=== PATIENT | female | born 1970 | race Two or more races ===

== ENCOUNTER 2017-11-02 05:03 | Emergency (ER) | payer OTHER ==
[~2017-11-02] VITALS: Ht 160 cm; Wt 45.4 kg
[~2017-11-02 05:03] MED LIST: CLONAZEPAM2 MG; DICY20TA; ORASEP SPRAY30 ML MM; PEPCID40 MG PO; PROTONIX20 MG; SINGULAIR10 MG; TOPROL XL25 M1; ZOFRAN8 MG PO
[2017-11-02] MEDS ORDERED: AMBIEN10 MG (05:52)
[2017-11-02] MEDS ORDERED: PROTONIX40 MG PO (10:41)
[2017-11-02] MEDS ORDERED: AMBIEN10 MG PO (10:41)
[2017-11-02] MEDS ORDERED: DICLOFENAC SODI50 MG PO (10:41)
== END 2017-11-02 11:22 | disposition home or self-care (01) ==
LOC: ER 05:03
DX: R10.13 Epigastric pain (principal)

== ENCOUNTER 2017-11-26 07:27 | Emergency (ER) | payer OTHER ==
[~2017-11-26] VITALS: Ht 160 cm; Wt 44.9 kg
[~2017-11-26 07:27] MED LIST changes: +AMBIEN10 MG; +AMBIEN10 MG PO; +DICLOFENAC SODI50 MG PO; +PROTONIX40 MG PO
== END 2017-11-26 10:52 | disposition home or self-care (01) ==
LOC: ER 07:27
DX: M79.1 Myalgia (principal)

== ENCOUNTER 2018-01-19 09:09 | Outpatient (CLI) | payer OTHER | END 2018-01-19 09:18 | disposition home or self-care (01) | LOC: RAD 501 09:09 | DX: M25.512 Pain in left shoulder (principal) ==

== ENCOUNTER 2018-06-12 14:47 | Emergency (ER) | payer OTHER ==
[~2018-06-12] VITALS: Ht 160 cm; Wt 36.3 kg
[2018-06-12] MEDS ORDERED: CLONAZEPAM1 MG (15:11)
== END 2018-06-12 22:17 | disposition home or self-care (01) ==
LOC: ER 14:47
DX: K29.70 Gastritis, unspecified, without bleeding (principal)

== ENCOUNTER 2018-08-01 06:59 | Emergency (ER) | payer OTHER ==
[~2018-08-01] VITALS: Ht 160 cm; Wt 39.0 kg
[~2018-08-01 06:59] MED LIST changes: +CLONAZEPAM1 MG
[2018-08-01] MEDS ORDERED: XOPENEX0.63 MG/3 IH (07:23)
[2018-08-01] MEDS ORDERED: SYMBICORT 16010.2 GM (07:24)
[2018-08-01] MEDS ORDERED: TUSSI PRES-B L120 M1 PO (11:01)
[2018-08-01] MEDS ORDERED: AMBIEN10 MG PO (11:01)
== END 2018-08-01 11:30 | disposition home or self-care (01) ==
LOC: ER 06:59
DX: B34.9 Viral infection, unspecified (principal)

== ENCOUNTER → 2018-10-12 | Outpatient (CLI) | payer OTHER ==
[~2018-10-12] MED LIST changes: +SYMBICORT 16010.2 GM; +TUSSI PRES-B L120 M1 PO; +XOPENEX0.63 MG/3 IH
== END | disposition home or self-care (01) ==
LOC: NUCLEAR 07:00
DX: C50.911 Malignant neoplasm of unspecified site of right female breast (principal); C79.89 Secondary malignant neoplasm of other specified sites
CPT/HCPCS: 78815; A9552

== ENCOUNTER 2018-10-30 08:20 | Emergency (ER) | payer OTHER ==
[~2018-10-30] VITALS: Ht 152.4 cm; Wt 39.9 kg
== END 2018-10-30 09:34 | disposition home or self-care (01) ==
LOC: ER 08:20
DX: S50.12XA Contusion of left forearm, initial encounter (principal); W22.8XXA Striking against or struck by other objects, initial encounter; Y93.89 Activity, other specified; Y92.89 Other specified places as the place of occurrence of the external cause; Y99.8 Other external cause status

== ENCOUNTER 2018-11-30 09:09 | Emergency (ER) | payer OTHER ==
[~2018-11-30] VITALS: Ht 152.4 cm; Wt 38.6 kg
== END 2018-11-30 13:10 | disposition home or self-care (01) ==
LOC: ER 09:09
DX: S90.01XA Contusion of right ankle, initial encounter (principal); W18.39XA Other fall on same level, initial encounter; Y93.89 Activity, other specified; Y92.091 Bathroom in other non-institutional residence as the place of occurrence of the external cause; Y99.8 Other external cause status

== ENCOUNTER 2019-02-16 10:41 | Emergency (ER) | payer OTHER ==
[~2019-02-16] VITALS: Ht 152.4 cm; Wt 40.8 kg
[2019-02-16] MEDS ORDERED: CLONAZEPAM1 MG (11:14)
[2019-02-16] MEDS ORDERED: KETO10TA2 PO (14:32)
[2019-02-16] MEDS ORDERED: AMBIEN10 MG PO (14:32)
[2019-02-16] MEDS ORDERED: CLONAZEPAM1 MG PO (14:32)
[2019-02-16] MEDS ORDERED: NORFLEX100MG PO (14:32)
== END 2019-02-16 14:40 | disposition home or self-care (01) ==
LOC: ER 10:41
DX: M79.622 Pain in left upper arm (principal)

== ENCOUNTER 2019-04-27 06:41 | Emergency (ER) | payer OTHER ==
[~2019-04-27] VITALS: Ht 152.4 cm; Wt 38.6 kg
[~2019-04-27 06:41] MED LIST changes: +CLONAZEPAM1 MG PO; +KETO10TA2 PO; +NORFLEX100MG PO
== END 2019-04-27 12:05 | disposition home or self-care (01) ==
LOC: ER 06:41
DX: K29.60 Other gastritis without bleeding (principal); R06.02 Shortness of breath

== ENCOUNTER 2019-06-10 07:51 | Emergency (ER) | payer OTHER ==
[~2019-06-10] VITALS: Ht 152.4 cm; Wt 39.9 kg
== END 2019-06-10 11:54 | disposition home or self-care (01) ==
LOC: ER 07:51
DX: B34.9 Viral infection, unspecified (principal)

== ENCOUNTER 2019-06-22 06:49 | Emergency (ER) | payer OTHER ==
[~2019-06-22] VITALS: Ht 152.4 cm; Wt 36.3 kg
== END 2019-06-22 14:21 | disposition home or self-care (01) ==
LOC: ER 06:49 → CPU-OBS 07:07 → ER 14:21
DX: R07.89 Other chest pain (principal); R00.2 Palpitations
CPT/HCPCS: G0378; G0379; 93005

== ENCOUNTER 2019-08-14 05:49 | Emergency (ER) | payer OTHER ==
[~2019-08-14] VITALS: Ht 160 cm; Wt 45.4 kg
== END 2019-08-14 12:35 | disposition home or self-care (01) ==
LOC: ER 05:49
DX: M54.5 Low back pain (principal)

== ENCOUNTER 2019-08-22 05:31 | Emergency (ER) | payer OTHER ==
[~2019-08-22] VITALS: Ht 152.4 cm; Wt 39.9 kg
[2019-08-22] MEDS ORDERED: AMBIEN10 MG PO (06:30)
== END 2019-08-22 06:39 | disposition home or self-care (01) ==
LOC: ER 05:31
DX: R06.02 Shortness of breath (principal); R00.0 Tachycardia, unspecified; F06.4 Anxiety disorder due to known physiological condition

== ENCOUNTER 2020-04-17 09:26 | Emergency (ER) | payer OTHER ==
[~2020-04-17] VITALS: Ht 152.4 cm; Wt 40.8 kg
[2020-04-17] MEDS ORDERED: NORFLEX100MG PO (10:53)
[2020-04-17] MEDS ORDERED: AMBIEN10 MG PO (10:53)
== END 2020-04-17 10:58 | disposition home or self-care (01) ==
LOC: ER 09:26
DX: M54.2 Cervicalgia (principal); M79.602 Pain in left arm

== ENCOUNTER 2020-04-27 05:29 | Emergency (ER) | payer OTHER ==
[~2020-04-27] VITALS: Ht 152.4 cm; Wt 36.3 kg
[2020-04-27] MEDS ORDERED: XOPENEX0.63 MG/3 (05:48)
[2020-04-27] MEDS ORDERED: CLONAZEPAM0.125 MG (05:48)
== END 2020-04-27 14:00 | disposition home or self-care (01) ==
LOC: ER 05:29
DX: J45.31 Mild persistent asthma with (acute) exacerbation (principal); R06.02 Shortness of breath; C50.812 Malignant neoplasm of overlapping sites of left female breast; C50.811 Malignant neoplasm of overlapping sites of right female breast; C79.9 Secondary malignant neoplasm of unspecified site; Z17.0 Estrogen receptor positive status [ER+]; Z03.818 Encounter for observation for suspected exposure to other biological agents ruled out

== ENCOUNTER 2020-06-04 06:31 | Emergency (ER) | payer OTHER ==
[~2020-06-04] VITALS: Ht 152.4 cm; Wt 39.9 kg
[~2020-06-04 06:31] MED LIST changes: +CLONAZEPAM0.125 MG; +XOPENEX0.63 MG/3
[2020-06-04] MEDS ORDERED: KETO10TA2 PO (09:47)
[2020-06-04] MEDS ORDERED: ORPHENADRINE C100 MG PO (09:47)
== END 2020-06-04 09:55 | disposition home or self-care (01) ==
LOC: ER 06:31
DX: S43.492A Other sprain of left shoulder joint, initial encounter (principal); X50.0XXA Overexertion from strenuous movement or load, initial encounter; Y93.F2 Activity, caregiving, lifting; Y92.89 Other specified places as the place of occurrence of the external cause; Y99.8 Other external cause status

== ENCOUNTER → 2020-07-26 | Emergency (ER) | payer OTHER ==
[~2020-07-26] VITALS: Ht 152.4 cm; Wt 39.9 kg
[~2020-07-26] MED LIST changes: +ANASTROZOLE1 MG PO; +ORPHENADRINE C100 MG PO
== END | disposition left against medical advice (07) ==
LOC: ER 12:20
DX: Z53.20 Procedure and treatment not carried out because of patient's decision for unspecified reasons (principal)

== ENCOUNTER 2021-03-07 09:20 | Emergency (ER) | payer OTHER ==
[~2021-03-07] VITALS: Ht 152.4 cm; Wt 45.4 kg
[2021-03-07] MEDS ORDERED: METOPROLOL SUCC25 MG PO (10:12)
[2021-03-07] MEDS ORDERED: ZOLPIDEM TARTRA10 MG PO (10:13)
[2021-03-07] MEDS ORDERED: CLONAZEPAM1 MG PO (10:13)
[2021-03-07] MEDS ORDERED: KETO10TA2 PO (13:13)
[2021-03-07] MEDS ORDERED: NORFLEX100MG PO (13:13)
== END 2021-03-07 14:11 | disposition home or self-care (01) ==
LOC: ER 09:20
DX: S80.01XA Contusion of right knee, initial encounter (principal); S80.11XA Contusion of right lower leg, initial encounter; W18.39XA Other fall on same level, initial encounter; Y93.89 Activity, other specified; Y92.098 Other place in other non-institutional residence as the place of occurrence of the external cause; Y99.8 Other external cause status

== ENCOUNTER 2022-06-13 06:17 | Emergency (ER) | payer OTHER ==
[~2022-06-13] VITALS: Ht 152.4 cm; Wt 45.4 kg
[~2022-06-13 06:17] MED LIST changes: +METOPROLOL SUCC25 MG PO; +ZOLPIDEM TARTRA10 MG PO
== END 2022-06-13 10:48 ==
LOC: ER 06:17
DX: M25.512 Pain in left shoulder (principal); M25.522 Pain in left elbow; X50.0XXA Overexertion from strenuous movement or load, initial encounter; Y93.9 Activity, unspecified; Y92.013 Bedroom of single-family (private) house as the place of occurrence of the external cause; Z88.0 Allergy status to penicillin; Z88.2 Allergy status to sulfonamides; Z91.013 Allergy to seafood; M75.52 Bursitis of left shoulder

== ENCOUNTER 2022-08-11 08:49 | Emergency (ER) | payer OTHER ==
[~2022-08-11] VITALS: Ht 152.4 cm; Wt 45.4 kg
== END 2022-08-11 11:12 | disposition home or self-care (01) ==
LOC: ER 08:49
DX: S43.402A Unspecified sprain of left shoulder joint, initial encounter (principal); Y93.E5 Activity, floor mopping and cleaning; Y93.89 Activity, other specified; Y92.89 Other specified places as the place of occurrence of the external cause; Y99.9 Unspecified external cause status; Z88.8 Allergy status to other drugs, medicaments and biological substances; Z88.0 Allergy status to penicillin; Z91.013 Allergy to seafood

== ENCOUNTER 2023-11-04 05:06 | Emergency (ER) | payer OTHER ==
[~2023-11-04] VITALS: Ht 152.4 cm; Wt 61.2 kg
[2023-11-04] MEDS ORDERED: ORPHENADRINE CITRATE 30 MG/ML AMPUL IM STA (05:27)
[2023-11-04] MEDS ORDERED: KETOROLAC TROMETHAMINE 60 MG VIAL IM STA (05:28)
[2023-11-04] MEDS ORDERED: TRIAMCINOLONE ACETONIDE 40 MG/ML VIAL IM STA (05:28)
== END 2023-11-04 06:39 ==
LOC: ER → EMR PED 05:10 → ER 06:39
DX: S05.12XA Contusion of eyeball and orbital tissues, left eye, initial encounter (principal); X58.XXXA Exposure to other specified factors, initial encounter; Y93.89 Activity, other specified; Y92.89 Other specified places as the place of occurrence of the external cause; Y99.9 Unspecified external cause status; R07.89 Other chest pain; Z88.8 Allergy status to other drugs, medicaments and biological substances; Z88.0 Allergy status to penicillin; Z91.013 Allergy to seafood

== ENCOUNTER 2023-11-12 04:37 | Emergency (ER) | payer OTHER ==
[~2023-11-12] VITALS: Ht 152.4 cm; Wt 61.2 kg
[2023-11-12] MEDS ORDERED: KAPSPARGO SPRIN25 MG PO (05:18)
[2023-11-12] MEDS ORDERED: KETOROLAC TROMETHAMINE 60 MG VIAL IM STA (06:39)
[2023-11-12] MEDS ORDERED: DEXAMETHASONE SODIUM PHOSPHATE 4 MG/ML VIAL IM STA (06:39)
[2023-11-12] MEDS ORDERED: ORPHENADRINE CITRATE 30 MG/ML AMPUL IM STA (06:42)
== END 2023-11-12 07:03 | disposition home or self-care (01) ==
LOC: ER 04:38
DX: M94.0 Chondrocostal junction syndrome [Tietze] (principal); Z88.0 Allergy status to penicillin; Z88.8 Allergy status to other drugs, medicaments and biological substances

== ENCOUNTER 2023-11-23 03:33 | Emergency (ER) | payer OTHER ==
[~2023-11-23] VITALS: Ht 152.4 cm; Wt 61.2 kg
[~2023-11-23 03:33] MED LIST changes: +KAPSPARGO SPRIN25 MG PO
[2023-11-23] MEDS ORDERED: DEXAMETHASONE SODIUM PHOSPHATE 4 MG/ML VIAL IM STA (04:47)
[2023-11-23] MEDS ORDERED: KETOROLAC TROMETHAMINE 60 MG VIAL IM STA (04:47)
[2023-11-23] MEDS ORDERED: ORPHENADRINE CITRATE 30 MG/ML AMPUL IM STA (04:47)
== END 2023-11-23 05:09 | disposition home or self-care (01) ==
LOC: ER 03:33
DX: M94.0 Chondrocostal junction syndrome [Tietze] (principal); I10 Essential (primary) hypertension

== ENCOUNTER 2024-03-07 17:51 | Emergency (ER) | payer OTHER ==
[~2024-03-07] VITALS: Ht 152.4 cm; Wt 61.2 kg
[2024-03-07] MEDS ORDERED: ANASTROZOLE1 MG (18:19)
[2024-03-07] MEDS ORDERED: KETOROLAC TROMETHAMINE 30 MG VIAL IM STA (21:26)
[2024-03-07] MEDS ORDERED: DEXAMETHASONE SODIUM PHOSPHATE 4 MG/ML VIAL IM STA (21:26)
[2024-03-07] MEDS ORDERED: ORPHENADRINE CITRATE 30 MG/ML AMPUL IM STA (21:27)
== END 2024-03-07 21:44 | disposition home or self-care (01) ==
LOC: ER 17:52
DX: M94.0 Chondrocostal junction syndrome [Tietze] (principal); Z88.0 Allergy status to penicillin; Z91.013 Allergy to seafood; Z88.8 Allergy status to other drugs, medicaments and biological substances; Z85.3 Personal history of malignant neoplasm of breast

== ENCOUNTER 2024-03-15 08:37 | Emergency (ER) | payer OTHER ==
[~2024-03-15] VITALS: Ht 152.4 cm; Wt 72.6 kg
[~2024-03-15 08:37] MED LIST changes: +ANASTROZOLE1 MG
[2024-03-15] MEDS ORDERED: KETOROLAC TROMETHAMINE 60 MG VIAL IM STA (09:54)
[2024-03-15] MEDS ORDERED: ORPHENADRINE CITRATE 30 MG/ML AMPUL IM STA (09:55)
[2024-03-15] MEDS ORDERED: ORPHENADRINE CITRATE 30 MG/ML AMPUL ONE (10:00)
[2024-03-15] MEDS ORDERED: KETOROLAC TROMETHAMINE 60 MG VIAL IM ONE (10:01)
== END 2024-03-15 10:13 | disposition home or self-care (01) ==
LOC: ER 08:38
DX: M94.0 Chondrocostal junction syndrome [Tietze] (principal); I10 Essential (primary) hypertension; Z88.8 Allergy status to other drugs, medicaments and biological substances; Z88.0 Allergy status to penicillin; Z91.013 Allergy to seafood; Z85.3 Personal history of malignant neoplasm of breast

== ENCOUNTER 2024-04-05 10:16 | Emergency (ER) | payer OTHER ==
[~2024-04-05] VITALS: Ht 152.4 cm; Wt 61.2 kg
[2024-04-05] MEDS ORDERED: ORPHENADRINE CITRATE 30 MG/ML AMPUL IM STA (10:59)
[2024-04-05] MEDS ORDERED: DEXAMETHASONE SODIUM PHOSPHATE 4 MG/ML VIAL IM STA (10:59)
[2024-04-05] MEDS ORDERED: KETOROLAC TROMETHAMINE 30 MG VIAL IM STA (10:59)
== END 2024-04-05 11:57 | disposition home or self-care (01) ==
LOC: ER 10:17
DX: M94.0 Chondrocostal junction syndrome [Tietze] (principal); Z88.0 Allergy status to penicillin; Z88.1 Allergy status to other antibiotic agents; Z91.013 Allergy to seafood; Z91.041 Radiographic dye allergy status

== ENCOUNTER 2024-04-15 06:04 | Emergency (ER) | payer OTHER ==
[~2024-04-15] VITALS: Ht 152.4 cm; Wt 61.2 kg
[2024-04-15] MEDS ORDERED: DEXAMETHASONE SODIUM PHOSPHATE 4 MG/ML VIAL IM ONE (09:45)
[2024-04-15] MEDS ORDERED: KETOROLAC TROMETHAMINE 30 MG VIAL IM ONE (09:45)
[2024-04-15] MEDS ORDERED: ORPHENADRINE CITRATE 30 MG/ML AMPUL IM ONE (09:45)
[2024-04-15] MEDS ORDERED: DEXAMETHASONE SODIUM PHOSPHATE 4 MG/ML VIAL ONE (09:46)
[2024-04-15] MEDS ORDERED: KETOROLAC TROMETHAMINE 30 MG VIAL ONE (09:46)
== END 2024-04-15 10:34 ==
LOC: ER 06:05
DX: M94.0 Chondrocostal junction syndrome [Tietze] (principal); Z88.0 Allergy status to penicillin; Z88.1 Allergy status to other antibiotic agents; Z91.013 Allergy to seafood; Z91.041 Radiographic dye allergy status

== ENCOUNTER 2024-06-02 03:13 | Emergency (ER) | payer OTHER ==
[~2024-06-02] VITALS: Ht 152.4 cm; Wt 52.2 kg
[2024-06-02] MEDS ORDERED: KETOROLAC TROMETHAMINE 60 MG VIAL IM STA (03:58)
== END 2024-06-02 04:45 | disposition home or self-care (01) ==
LOC: ER 03:15
DX: S50.12XA Contusion of left forearm, initial encounter (principal); W18.39XA Other fall on same level, initial encounter; Y93.89 Activity, other specified; Y92.89 Other specified places as the place of occurrence of the external cause; Y99.9 Unspecified external cause status; Z88.8 Allergy status to other drugs, medicaments and biological substances; Z88.0 Allergy status to penicillin; Z91.013 Allergy to seafood

== ENCOUNTER 2024-06-14 06:20 | Emergency (ER) | payer OTHER ==
[~2024-06-14] VITALS: Ht 167.6 cm; Wt 72.6 kg
[2024-06-14 06:36] VITALS: BP 127/71; O2SAT 100
[2024-06-14] MEDS ORDERED: KETOROLAC TROMETHAMINE 60 MG VIAL IM ONE (08:15)
[2024-06-14] MEDS ORDERED: DEXAMETHASONE SODIUM PHOSPHATE 4 MG/ML VIAL IM ONE (08:15)
== END 2024-06-14 08:20 | disposition home or self-care (01) ==
LOC: ER 06:22
DX: M94.0 Chondrocostal junction syndrome [Tietze] (principal); I10 Essential (primary) hypertension; Z88.8 Allergy status to other drugs, medicaments and biological substances; Z88.0 Allergy status to penicillin; Z91.013 Allergy to seafood

== ENCOUNTER 2024-08-10 07:53 | Emergency (ER) | payer OTHER ==
[~2024-08-10] VITALS: Ht 160 cm; Wt 76.2 kg
[2024-08-10] MEDS ORDERED: ORPHENADRINE CITRATE 30 MG/ML AMPUL IM ONE (08:45)
[2024-08-10] MEDS ORDERED: NORFLEX100MG PO (09:34)
== END 2024-08-10 09:39 | disposition home or self-care (01) ==
LOC: ER 07:55
DX: S99.812A Other specified injuries of left ankle, initial encounter (principal); X58.XXXA Exposure to other specified factors, initial encounter; Y93.89 Activity, other specified; Y92.89 Other specified places as the place of occurrence of the external cause; Z88.0 Allergy status to penicillin; Z91.041 Radiographic dye allergy status; Z91.013 Allergy to seafood; J45.909 Unspecified asthma, uncomplicated; Z85.3 Personal history of malignant neoplasm of breast; Z85.89 Personal history of malignant neoplasm of other organs and systems
CPT/HCPCS: 73610; 96372; 99283; J2360

== ENCOUNTER 2024-08-27 09:51 | Emergency (ER) | payer OTHER ==
[~2024-08-27] VITALS: Ht 152.4 cm; Wt 61.2 kg
[2024-08-27] MEDS ORDERED: KETOROLAC TROMETHAMINE 30 MG VIAL IM STA (11:49)
[2024-08-27] MEDS ORDERED: KETOROLAC TROMETHAMINE 60 MG VIAL IM ONE (12:03)
== END 2024-08-27 12:52 | disposition home or self-care (01) ==
LOC: ER 09:53
DX: S49.82XA Other specified injuries of left shoulder and upper arm, initial encounter (principal); X58.XXXA Exposure to other specified factors, initial encounter; Y93.89 Activity, other specified; Y92.89 Other specified places as the place of occurrence of the external cause; Y99.8 Other external cause status; M25.532 Pain in left wrist; M25.522 Pain in left elbow; M25.512 Pain in left shoulder; Z88.0 Allergy status to penicillin; Z88.1 Allergy status to other antibiotic agents; Z91.013 Allergy to seafood; Z91.041 Radiographic dye allergy status

== ENCOUNTER → 2025-01-14 | Emergency (ER) | payer OTHER ==
[~2025-01-14] VITALS: Ht 152.4 cm; Wt 63.5 kg
[~2025-01-14] MED LIST changes: +KETOROLAC TROMETHAMINE 60 MG VIAL IM ONE
== END | disposition home or self-care (01) ==
LOC: ER 07:16
DX: G89.11 Acute pain due to trauma (principal); M25.571 Pain in right ankle and joints of right foot; Z88.0 Allergy status to penicillin; Z88.1 Allergy status to other antibiotic agents; Z88.6 Allergy status to analgesic agent; Z91.013 Allergy to seafood; Z91.041 Radiographic dye allergy status

== ENCOUNTER 2025-02-26 07:42 | Emergency (ER) | payer OTHER ==
[~2025-02-26] VITALS: Ht 152.4 cm; Wt 66.2 kg
[~2025-02-26 07:42] MED LIST changes: -KETOROLAC TROMETHAMINE 60 MG VIAL IM ONE
[2025-02-26] MEDS ORDERED: DEXAMETHASONE SODIUM PHOSPHATE 4 MG/ML VIAL IM ONE (08:30)
[2025-02-26] MEDS ORDERED: ORPHENADRINE CITRATE 30 MG/ML AMPUL IM ONE (08:30)
[2025-02-26] MEDS ORDERED: KETOROLAC TROMETHAMINE 60 MG VIAL IM ONE (08:30)
== END 2025-02-26 09:22 | disposition home or self-care (01) ==
LOC: ER 07:51
DX: C50.919 Malignant neoplasm of unspecified site of unspecified female breast (principal); M94.0 Chondrocostal junction syndrome [Tietze]; Z88.8 Allergy status to other drugs, medicaments and biological substances; Z88.0 Allergy status to penicillin; Z91.013 Allergy to seafood

== ENCOUNTER → 2025-03-12 | Emergency (ER) | payer OTHER ==
[~2025-03-12] VITALS: Ht 152.4 cm; Wt 66.7 kg
[~2025-03-12] MED LIST changes: +ACETAMINOPHEN 500 MG GEL..CAP PO STA; +KETOROLAC TROMETHAMINE 60 MG VIAL IM STA
== END | disposition home or self-care (01) ==
LOC: ER 05:55
DX: S93.491A Sprain of other ligament of right ankle, initial encounter (principal); S96.919A Strain of unspecified muscle and tendon at ankle and foot level, unspecified foot, initial encounter; X58.XXXA Exposure to other specified factors, initial encounter; Y93.89 Activity, other specified; Y92.89 Other specified places as the place of occurrence of the external cause; Y99.8 Other external cause status; Z88.0 Allergy status to penicillin; Z88.1 Allergy status to other antibiotic agents; Z91.013 Allergy to seafood; Z91.041 Radiographic dye allergy status

== ENCOUNTER 2025-04-16 01:38 | Emergency (ER) | payer OTHER ==
[~2025-04-16] VITALS: Ht 167.6 cm; Wt 66.2 kg
[~2025-04-16 01:38] MED LIST changes: -ACETAMINOPHEN 500 MG GEL..CAP PO STA; -KETOROLAC TROMETHAMINE 60 MG VIAL IM STA
[2025-04-16] MEDS ORDERED: KETOROLAC TROMETHAMINE 60 MG VIAL IM STA (03:34)
[2025-04-16] MEDS ORDERED: ORPHENADRINE CITRATE 30 MG/ML AMPUL IM STA (03:34)
[2025-04-16] MEDS ORDERED: DEXAMETHASONE SODIUM PHOSPHATE 4 MG/ML VIAL IM STA (03:35)
[2025-04-16] MEDS ORDERED: NORFLEX100MG PO (03:43)
[2025-04-16] MEDS ORDERED: TORADOL60 MG IM (03:43)
== END 2025-04-16 03:37 ==
LOC: ER 01:44
DX: M94.0 Chondrocostal junction syndrome [Tietze] (principal); Z88.0 Allergy status to penicillin; Z91.013 Allergy to seafood; Z88.8 Allergy status to other drugs, medicaments and biological substances; Z85.3 Personal history of malignant neoplasm of breast

== ENCOUNTER 2025-04-30 06:36 | Emergency (ER) | payer OTHER ==
[~2025-04-30] VITALS: Ht 152.4 cm; Wt 66.2 kg
[~2025-04-30 06:36] MED LIST changes: +TORADOL60 MG IM
[2025-04-30] MEDS ORDERED: ANASTROZOLE1 MG PO (07:36)
[2025-04-30] MEDS ORDERED: DEXAMETHASONE SODIUM PHOSPHATE 4 MG/ML VIAL ONE (08:43)
[2025-04-30] MEDS ORDERED: ACETAMINOPHEN 500 MG GEL..CAP PO ONE ×2 (08:43→08:45)
[2025-04-30] MEDS ORDERED: ORPHENADRINE CITRATE 30 MG/ML AMPUL ONE (08:43)
[2025-04-30] MEDS ORDERED: DEXAMETHASONE SODIUM PHOSPHATE 4 MG/ML VIAL IM ONE (08:45)
[2025-04-30] MEDS ORDERED: ORPHENADRINE CITRATE 30 MG/ML AMPUL IM ONE (08:45)
== END 2025-04-30 10:02 | disposition home or self-care (01) ==
LOC: ER 06:36
DX: M94.0 Chondrocostal junction syndrome [Tietze] (principal); Z88.0 Allergy status to penicillin; Z88.1 Allergy status to other antibiotic agents; Z91.013 Allergy to seafood; Z91.041 Radiographic dye allergy status

== ENCOUNTER 2025-05-17 05:17 | Emergency (ER) | payer OTHER ==
[~2025-05-17] VITALS: Ht 152.4 cm; Wt 66.2 kg
[2025-05-17] MEDS ORDERED: KETOROLAC TROMETHAMINE 60 MG VIAL IM STA (06:00)
[2025-05-17] MEDS ORDERED: KETOROLAC TROMETHAMINE 60 MG VIAL IM ONE (06:07)
[2025-05-17] MEDS ORDERED: DOLOGESIC-DF 51 EACH PO (06:34)
== END 2025-05-17 06:43 | disposition home or self-care (01) ==
LOC: ER 05:17
DX: S93.401A Sprain of unspecified ligament of right ankle, initial encounter (principal); X58.XXXA Exposure to other specified factors, initial encounter; Y93.89 Activity, other specified; Y92.89 Other specified places as the place of occurrence of the external cause; Y99.9 Unspecified external cause status; Z88.0 Allergy status to penicillin; Z91.013 Allergy to seafood; Z88.8 Allergy status to other drugs, medicaments and biological substances; Z85.89 Personal history of malignant neoplasm of other organs and systems

== ENCOUNTER 2025-06-17 06:11 | Emergency (ER) | payer OTHER ==
[~2025-06-17] VITALS: Ht 152.4 cm; Wt 66.2 kg
[~2025-06-17 06:11] MED LIST changes: +DOLOGESIC-DF 51 EACH PO
[2025-06-17] MEDS ORDERED: ORPHENADRINE CITRATE 30 MG/ML AMPUL IM ONE (07:15)
[2025-06-17] MEDS ORDERED: KETOROLAC TROMETHAMINE 60 MG VIAL IM ONE ×2 (07:15→07:23)
[2025-06-17] MEDS ORDERED: DEXAMETHASONE SODIUM PHOSPHATE 4 MG/ML VIAL IM ONE (07:15)
[2025-06-17] MEDS ORDERED: ORPHENADRINE CITRATE 30 MG/ML AMPUL ONE (07:22)
[2025-06-17] MEDS ORDERED: DEXAMETHASONE SODIUM PHOSPHATE 4 MG/ML VIAL ONE (07:23)
== END 2025-06-17 07:42 | disposition home or self-care (01) ==
LOC: ER 06:11
DX: M94.0 Chondrocostal junction syndrome [Tietze] (principal); Z85.3 Personal history of malignant neoplasm of breast; J45.909 Unspecified asthma, uncomplicated; Z91.013 Allergy to seafood; Z91.041 Radiographic dye allergy status; Z88.0 Allergy status to penicillin; Z88.1 Allergy status to other antibiotic agents; S23.41XA Sprain of ribs, initial encounter

== ENCOUNTER 2025-06-25 06:04 | Emergency (ER) | payer OTHER ==
[~2025-06-25] VITALS: Ht 152.4 cm; Wt 66.2 kg
[2025-06-25] MEDS ORDERED: ORPHENADRINE CITRATE 30 MG/ML AMPUL IM STA (06:28)
[2025-06-25] MEDS ORDERED: KETOROLAC TROMETHAMINE 30 MG VIAL IM STA (06:28)
[2025-06-25] MEDS ORDERED: VOLTAREN ARTHRI20 GM ID (07:55)
== END 2025-06-25 08:38 | disposition home or self-care (01) ==
LOC: ER 06:05
DX: S93.401A Sprain of unspecified ligament of right ankle, initial encounter (principal); Z85.3 Personal history of malignant neoplasm of breast; J45.909 Unspecified asthma, uncomplicated; X50.1XXA Overexertion from prolonged static or awkward postures, initial encounter; Y93.89 Activity, other specified; Y92.018 Other place in single-family (private) house as the place of occurrence of the external cause; Z91.013 Allergy to seafood; Z88.0 Allergy status to penicillin; Z91.041 Radiographic dye allergy status; Z88.1 Allergy status to other antibiotic agents

== ENCOUNTER 2025-07-09 05:28 | Emergency (ER) | payer OTHER ==
[~2025-07-09] VITALS: Ht 167.6 cm; Wt 66.2 kg
[~2025-07-09 05:28] MED LIST changes: +VOLTAREN ARTHRI20 GM ID
[2025-07-09] MEDS ORDERED: ORPHENADRINE CITRATE 30 MG/ML AMPUL ONE ×2 (07:42→07:44)
[2025-07-09] MEDS ORDERED: KETOROLAC TROMETHAMINE 60 MG VIAL IM ONE ×2 (07:43→07:45)
[2025-07-09] MEDS ORDERED: LEVALBUTEROL HCL 1.25 MG/3 ML SOLUTION IH ONE ×2 (07:45→07:47)
[2025-07-09] MEDS ORDERED: ORPHENADRINE CITRATE 30 MG/ML AMPUL IM ONE (07:45)
[2025-07-09] MEDS ORDERED: XOPENEX HFA15 GM IH (08:51)
[2025-07-09] MEDS ORDERED: TORADOL60 MG IM (08:51)
[2025-07-09] MEDS ORDERED: LEVALBUTER0.63 MG/3 IH (08:51)
== END 2025-07-09 10:12 | disposition home or self-care (01) ==
LOC: ER 05:29
DX: J45.909 Unspecified asthma, uncomplicated (principal); M94.0 Chondrocostal junction syndrome [Tietze]; R05.9 Cough, unspecified; Z88.0 Allergy status to penicillin; Z88.1 Allergy status to other antibiotic agents; Z91.041 Radiographic dye allergy status